=== PATIENT | male | born 1995 | race Caucasian/White ===

== ENCOUNTER 2017-05-03 23:28 | Emergency (ER) | payer OTHER ==
[~2017-05-03] VITALS: Ht 185.4 cm; Wt 113.4 kg
[2017-05-03 23:45] VITALS: Ht 185.4 cm; Wt 113.4 kg
[2017-05-04 01:16] VITALS: BP 130/85
== END 2017-05-04 01:16 | disposition home or self-care (01) ==
LOC: ED 23:28
DX: J06.9 Acute upper respiratory infection, unspecified (principal)

== ENCOUNTER 2018-04-05 16:59 | Emergency (ER) | payer OTHER ==
[~2018-04-05] VITALS: Ht 185.4 cm; Wt 109.8 kg
[2018-04-05 17:17] VITALS: Ht 185.4 cm; Wt 109.8 kg
[2018-04-05 17:42] LABS: BASOPHIL % 0.4 % (0-2); PLATELET COUNT 353 x10^3mcL (130-400)
[2018-04-05 17:55] LABS: CALCIUM 9.2 mg/dL (8.5-10.1); CARBON DIOXIDE 28.7 mmol/L (21-32); CHLORIDE SERUM 101 mmol/L (98-107); CREATININE SERUM 1.1 mg/dL (0.7-1.3); GFR1 > 60 mL/min; GLUCOSE SERUM 107 mg/dL (74-106); POTASSIUM SERUM 3.7 mmol/L (3.5-5.1); SODIUM SERUM 140 mmol/L (136-145)
[2018-04-05 17:59] LABS: ALBUMIN 4.2 g/dL (3.4-5.0); ALKALINE PHOSPHATASE 83 U/L (46-116); AST/SGOT 27 U/L (15-37); BILIRUBIN TOTAL 0.2 mg/dL (0.20-1.00); LIPASE 131 IU/L (73-393)
[2018-04-05 18:00] LABS: TOTAL PROTEIN, SERUM 8.3 g/dL (6.4-8.2)
[2018-04-05 18:27] LABS: ALT/SGPT 64 U/L (16-63)
[2018-04-05 19:36] VITALS: BP 127/86
== END 2018-04-05 19:36 | disposition home or self-care (01) ==
LOC: ED 16:59
PROVIDERS: Emergency Medicine
DX: Q20.3 Discordant ventriculoarterial connection (principal); R07.89 Other chest pain
CPT/HCPCS: 36415; 83880; Q0092; Q9967

== ENCOUNTER 2018-04-07 20:41 | Emergency (ER) | payer OTHER ==
[~2018-04-07] VITALS: Ht 185.4 cm; Wt 115.2 kg
[2018-04-07 20:48] VITALS: Ht 185.4 cm; Wt 115.2 kg
[2018-04-07 21:29] LABS: BASOPHIL % 1.1 % (0-2); PLATELET COUNT 317 x10^3mcL (130-400); RED CELL DISTRIBUTION WIDTH 13.4 % (11.5-14.5)
[2018-04-07 21:38] LABS: CALCIUM 8.3 mg/dL (8.5-10.1); CARBON DIOXIDE 28.1 mmol/L (21-32); CHLORIDE SERUM 105 mmol/L (98-107); CREATININE SERUM 1.2 mg/dL (0.7-1.3); GFR1 > 60 mL/min; GLUCOSE SERUM 100 mg/dL (74-106); POTASSIUM SERUM 3.8 mmol/L (3.5-5.1); SODIUM SERUM 143 mmol/L (136-145)
[2018-04-07 21:43] LABS: ALBUMIN 3.9 g/dL (3.4-5.0); ALKALINE PHOSPHATASE 83 U/L (46-116); ALT/SGPT 56 U/L (16-63); AST/SGOT 22 U/L (15-37); BILIRUBIN TOTAL 0.27 mg/dL (0.20-1.00); TOTAL PROTEIN, SERUM 7.7 g/dL (6.4-8.2)
[2018-04-07 22:12] LABS: AMPHETAMINE QUAL UR NONE DETECTED (See below)
[2018-04-07 22:27] VITALS: BP 106/82
== END 2018-04-07 22:27 | disposition home or self-care (01) ==
LOC: ED 20:41
PROVIDERS: Emergency Medicine
DX: R07.89 Other chest pain (principal); Q20.3 Discordant ventriculoarterial connection
CPT/HCPCS: 36415; 83880; 85378; Q0092